=== PATIENT | male | born 1990 | race Two or more races ===

== ENCOUNTER 2025-09-07 22:51 | Emergency (ER) | payer SELFPAY ==
[2025-09-07 22:55] VITALS: BP 144/93; PULSE 97; RESP 17; TEMP 37.3; O2SAT 99
--- NOTE | 2025-09-07 23:02 | EDNOTE_ITS ---
ED Medical Clearance RME/HPI General Chief complaint: Medical Clearance Stated complaint: MEDICAL CLEARANCE Time Seen by Provider: 09/07/25 22:58 Arrival date/time: 09/07/25 22:51 RME / HPI RME / HPI Narrative: Dr. Jacobson?s Main ED Evaluation: 35yo male BIB [facility] presents to the ED for a medical clearance. Per [facility], patient was acting normally until the handcuffs were placed, reporting the patient felt dizzy. Patient was guided to the floor. No falls or injuries. Patient states he generally feels bad . Denies any other associated symptoms. Review of Systems Review of Systems Systems Reviewed: All systems reviewed, normal except as documented ED Exam Narrative Physical exam: Generally patient is somnolent but arousable, head is normocephalic atraumatic, eyes pupils equal round reactive to light, heart regular rate and rhythm, lungs clear to auscultation equal bilaterally, chest shows no wounds, abdomen is soft nontender without wound, neurologic exam patient is somnolent but arousable without focal motor deficit. He does obey commands. Course Quality Measures none Vital Signs Vital signs: Vital Signs Temperature 99.1 F 09/07/25 22:55 Pulse Rate 97 09/07/25 22:55 Respiratory Rate 17 09/07/25 22:55 Blood Pressure 144/93 H 09/07/25 22:55 Pulse Oximetry (%) 99 09/07/25 22:55 Oxygen Delivery Method Room Air 09/07/25 22:55 Medical Clearance MDM Narrative [facility] Narrative:: Scribe Attestation: 09/07/25 - Fara Sheffield, lukas scribing for and in the presence of Dr. Jacobson. Apparently according to the officer there was drug paraphernalia in the car. I do not smell alcohol on the patient. Blood sugar is 159. Patient becomes ambulatory and only became not ambulatory when he found out from the officer that he was going to be arrested. Patient is medically clear for care home facility. Patient data External records reviewed:: [facility] previous records (Per chart review, patient has no previous ED visits or admissions to this facility.) Clinical information provided by:: patient and law enforcement Social determinants that could affect healthcare access:: none Patient has the following chronic illnesses:: none How is presenting disease/condition affected by chronic disease/condition?: no chronic disease Evaluation data The following diagnostics were reviewed and interpreted by me:: other (specify) (none) Lab and/or radiology exams considered but not ordered:: none Interpretation Summary: none Medications / Prescriptions Medications or Prescriptions considered but not ordered:: none Medication administrations:: none Consultations Consultation(s) initiated? (list below): No Diagnosis Medical Clearance Differential Diagnosis: other (See MDM) Most likely diagnosis given after review of the tests above:: see clinical impression below Admission Indicated Admission indicated?: not indicated Admission Request Was there a request for admission?: No Disposition Plan Disposition Plan: Discharge Discharge Attestation Discharge Attestation: The patient and all family members were given an opportunity to ask questions and understood the discharge instructions. Discharge instructions specifically effects, indications for sooner follow up or return to the emergency department, and the expected course of current diagnosis. Patient condition: Stable Discharge Plan Plan Patient Disposition: Group Home/Court/Law Problem List Clinical Impression: Mental status, decreased Patient/Caregiver Discharge Instructions Education Materials: ED Confusion Additional Instructions: Blood sugar is normal at 159. Patient may be under the influence of a substance. Patient is medically clear for care home facility. Print Language: Barb[place]
== END 2025-09-07 23:15 ==
PROVIDERS: Emergency Provider Emergency Medicine
DX: Z02.89 Encounter for other administrative examinations (principal); R42 Dizziness and giddiness
CPT/HCPCS: 99281